=== PATIENT | male | born 1950 | race Caucasian/White ===

== ENCOUNTER 2020-06-16 16:23 | Observation (INO) | payer MEDICARE, OTHER ==
[~2020-06-16] VITALS: Ht 182.9 cm; Wt 107.5 kg
[~2020-06-16 16:23] MED LIST: AMIODARONE HCL200 MG PO; ASPIR 8181 MG PO; ASPIRIN CHEWABL81 MG PO; CLARITIN10 MG PO; CORDARONE 200M200 MG PO; ELIQUIS5 MG PO; FEOSOL325 MG PO; FLONASE 0.05% N16 GM; FUROSEMIDE40 MG PO; IMDUR ER TAB 3030 MG PO; LASIX20 MG PO; LEVAQUIN500 MG PO; LISINOPRIL2.5 MG PO; METOPROLOL SUCC25 MG PO; NITROGLYCERIN0.4 MG SL; NITROSTAT0.4 MG SL; NORVASC10 MG PO; OMNICEF 300 MG300 MG PO; RANEXA500 MG PO; TESSALON PERLE100 MG PO; THIAMINE HCL50 MG PO; TYLENOL 500 MG500 MG PO; TYLENOL W/CODEIN1 E1 PO; VENTOLIN HFA 66.7 GM INH; VIBRAMYCIN100 MG PO; ZESTRIL5 MG PO
[2020-06-16 17:35] LABS: HEMOGLOBIN 13.9 gm/dl (14.0-17.5); RED BLOOD COUNT 4.92 M/UL (4.20-5.50); WHITE BLOOD COUNT 7.5 K/UL (4.5-11.0)
[2020-06-16 17:55] LABS: BUN/CREATININE RATIO 13 (0-10)
[2020-06-16] MEDS ORDERED: PACERONE200 MG PO (20:24)
[2020-06-16] MEDS ORDERED: DAILY VITAMIN1 EAC2 PO (20:25)
[2020-06-16] MEDS ORDERED: HYDROXYZINE HCL10 MG PO (20:26)
[2020-06-16] MEDS ORDERED: VITAMIN D325 MCG PO (20:27)
[2020-06-16] MEDS ORDERED: ASPIRIN EC81 MG PO (20:29)
[2020-06-16] MEDS ORDERED: MELATONIN3 MG PO (20:30)
[2020-06-16] MEDS ORDERED: BUSPAR 10MG10 MG PO (20:31)
[2020-06-16] MEDS ORDERED: TOPROL XL50 MG PO (20:34)
[2020-06-16] MEDS ORDERED: MECLIZINE HCL25 MG PO (20:38)
[2020-06-17 04:32] LABS: HEMOGLOBIN 12.5 gm/dl (14.0-17.5); RED BLOOD COUNT 4.44 M/UL (4.20-5.50); WHITE BLOOD COUNT 6.4 K/UL (4.5-11.0)
== END 2020-06-18 17:38 | disposition home or self-care (01) ==
LOC: ER1 16:23 → MED SURG 4 18:49 → CDU 18:49 → MED SURG 4 06-17 07:05
PROVIDERS: Family Medicine; ADMIT Internal Medicine
DX: I13.0 Hypertensive heart and chronic kidney disease with heart failure and stage 1 through stage 4 chronic kidney disease, or unspecified chronic kidney disease (principal); N18.30 Chronic kidney disease, stage 3 unspecified; I50.23 Acute on chronic systolic (congestive) heart failure; D69.6 Thrombocytopenia, unspecified; I42.0 Dilated cardiomyopathy; I48.0 Paroxysmal atrial fibrillation; E78.5 Hyperlipidemia, unspecified; Z95.810 Presence of automatic (implantable) cardiac defibrillator; Z20.822 Contact with and (suspected) exposure to COVID-19; Z86.73 Personal history of transient ischemic attack (TIA), and cerebral infarction without residual deficits; Z79.01 Long term (current) use of anticoagulants; Z79.82 Long term (current) use of aspirin; Z79.899 Other long term (current) drug therapy
CPT/HCPCS: ECHO; 71045; 80048; 80053; 82550; 82553; 83735; 83874; 83880; 84439; 84443; 84484; 85025; 85027; 93306; 94760; 96374; 96375; 96376; 99285; G0008; G0378; J1940; U0002